=== PATIENT | female | born 1950 | race Caucasian/White ===

== ENCOUNTER 2016-11-12 22:57 | Inpatient (IN) ==
[2016-11-13] MEDS ORDERED: NS 1,000 ML IV ONE (00:06)
[2016-11-13 00:27] LABS: MANUAL DIFF NEEDED? NO
[2016-11-13 00:36] LABS: BASO% 0.1 % (0.0-0.8); HEMATOCRIT 35.2 % (37.0-47.0); HEMOGLOBIN 11.9 g/dL (12.0-16.0); IMM GRAN# 0.08 X1000 (0.0-0.04); IMM GRAN% 0.6 % (0.0-0.5); LYMPH# 0.87 X1000 (1.2-3.4); LYMPH% 6.1 % (20.5-51.1); MCH 30.5 PG (27-31); MCHC 33.8 g/dL (33-37); MCV 90.3 FL (81-99); MONO# 1.22 X1000 (0.11-0.59); MONO% 8.6 % (1.7-9.3); MPV 9.6 FL (7.4-10.4); NEUT% 84.6 % (42.2-75.2); PLT 205 X1000 (130-400)
[2016-11-13] MEDS ORDERED: MONISTAT-DERM 2% CREAM TOP ONE (00:40)
[2016-11-13 01:04] LABS: ACETONE SERUM NEGATIVE (NEGATIVE)
--- NOTE | 2016-11-13 01:04 | PROVIDER DOCUMENTATION ---
This chart was entered by Angie Billingsley Scribe, acting as scribe for Jorge Lazar MD. HPI-General Adult - General Chief Complaint: Fall Stated Complaint: multiple falls Time Seen by Provider: 11/12/16 23:56 Source: patient Allergies/Adverse Reactions: Patient Allergies Allergy/AdvReac Type Severity Reaction Status Date / Time meperidine HCl * AdvReac DIZZINESS Verified 11/12/16 23:22 [From Demerol] Home Medications: Home Medication List Medication Instructions Recorded Confirmed Last Taken Type Budesonide/Formoterol Inhaler 2 puff INH DIRECTED 07/12/15 11/12/16 11/12/16 21:00 History [Symbicort 160/4.5 Microgm Inhaler] Duloxetine [Cymbalta] 30 mg PO QHS 07/12/15 11/12/16 11/12/16 21:00 History Furosemide [Lasix] 80 mg PO DAILY 07/12/15 11/12/16 11/12/16 09:00 History Glipizide [Glucotrol] 10 mg PO DAILY 07/12/15 11/12/16 11/12/16 09:00 History Levetiracetam [Keppra] 500 mg PO BID 07/12/15 11/12/16 11/12/16 21:00 History Losartan Potassium [Cozaar] 100 mg PO DAILY 07/12/15 11/12/16 11/12/16 08:00 History Metoprolol Succinate E.r. [Toprol 50 mg PO BID 07/12/15 11/12/16 11/12/16 21:00 History Xl] PRAVAstatin [Pravachol] 40 mg PO QHS 07/12/15 11/12/16 11/12/16 21:00 History Ropinirole HCl [Requip] 1 mg PO QHS 07/12/15 11/12/16 11/12/16 21:00 History Trazodone [Desyrel] 150 mg PO QHS PRN 07/12/15 11/12/16 11/12/16 21:00 History - History of Present Illness -Gen Adult Nature of Presenting Problems: Patient is a 66 year old female who presents in the ED with grandson with complaints of multiple falls and other symptoms. Patient states she has had three falls/syncopal episodes today, and states her first fall was at 9:00 a.m. She also states she has felt lightheaded prior to passing out, and states she "stays out for a couple of minutes before waking back up." She reports she was seen in the ED on for similar symptoms but was discharged, and reports she had several similar episodes yesterday as well. She also reports she has had diarrhea since yesterday, and reports she has intermittent constipation as well. She states she has also had elevated glucose and dyspnea. She denies chest pain, abdominal pain, and any other symptoms. Location of Pain/Injury: reports: none Pain Radiation: reports: no radiation Quality of Pain: reports: none Severity: reports: mild, moderate Onset/Duration: reports: abrupt Timing: reports: intermittent Context/Activities at Onset: reports: light activity, moderate activity Modifying Factors: improves with: nothing Associated Symptoms: reports: diarrhea, syncope, other (multiple falls) Similar Symptoms Previously?: Yes (ED for same symptoms) Recently seen or treated by another doctor?: Yes (ED ) Review of Systems - Adult - REVIEW OF SYSTEMS - ADULT Constitutional: reports: see HPI, other (multiple recent falls) Eyes: reports: no symptoms reported Ears, Nose, Mouth & Throat: reports: no symptoms reported Cardiovascular: reports: no symptoms reported. denies: chest pain Respiratory: reports: see HPI, shortness of breath Gastrointestinal: reports: see HPI, diarrhea. denies: abdominal pain, hematemesis, rectal bleeding Genitourinary: reports: no symptoms reported Musculoskeletal: reports: no symptoms reported Integumentary: reports: no symptoms reported Neurological: reports: see HPI, syncope Psychiatric: reports: no symptoms reported Endocrine: reports: no symptoms reported Hematologic/Lymphatic: reports: no symptoms reported Allergic/Immunologic: reports: no symptoms reported All Other Systems: Reviewed and Negative Past History - Adult - PAST MEDICAL HISTORY-ADULT Review of Records: reports: Old Records Reviewed, Nursing Assessment Review, Medications Reviewed Major Childhood Illnesses: reports: denies history Cardiovascular: reports: CAD, CHF, HTN, hyperlipidemia, NV, other (CABG) Respiratory: reports: asthma, sleep apnea Gastrointestinal: reports: GERD Obstetrical/Gynecological: reports: denies history Genitourinary: reports: kidney disease Musculoskeletal: reports: denies history Neurological: reports: CVA, Multiple Sclerosis, Seizures/Epilepsy, TIA Psychiatric: reports: depression Endocrine/Immune: reports: Diabetes Other Conditions: reports: other (sleep apnea) - PRIOR SURGERIES/PROCEDURES Surgical/Procedure History: reports: appendectomy, cholecystectomy, hysterectomy , - PRIOR HOSPITALIZATIONS Prior Hospitalizations: reports: none - IMMUNIZATION STATUS Childhood Immunizations: See Nurse Assessment Flu Vaccine: See Nurse Assessment - FAMILY HISTORY Family History: reviewed, not pertinent - SOCIAL HISTORY Smoking: denies Substance Use: none/never Alcohol Use Frequency: never Living Situation: alone Physical Exam-General - PHYSICAL EXAM-ADULT Initial Vital Signs Reviewed: Yes - CONSTITUTIONAL General Appearance: alert, no apparent distress - EYES Eyes: PERRL/EOMI, pink conjunctivae - HEAD, EARS, NOSE, MOUTH & THROAT HENMT: normocephalic/atraumatic, moist mucous membranes - NECK Neck: non-tender, full range of motion, supple, normal inspection - RESPIRATORY Respiratory: chest non-tender, lungs clear, normal breath sounds, no pleuratic chest pain, no respiratory distress, no accessory muscle use - CARDIOVASCULAR Cardiovascular: regular rate, rhythm, no edema, no gallop, no JVD, no murmur - GASTROINTESTINAL (ABDOMEN) Abdominal Exam: normal bowel sounds, non tender, soft, no organomegaly, no pulsatile mass, other (obese) - LYMPHATIC Lymphatic: no adenopathy - MUSCULOSKELETAL Back Exam: normal inspection, no CVA tenderness, no vertebral tenderness Extremity: normal range of motion, non-tender, normal inspection, no pedal edema , no calf tenderness, normal capillary refill, pelvis stable - SKIN Integumentary: normal color, warm/dry - NEUROLOGIC Neurologic: grossly normal, no motor/sensory deficits - PSYCHIATRIC Psych/Mental Status: normal mood/affect, oriented x 3 Progress - PLAN OF CARE/RESULTS Progress/Plan/Lab Results: Vital Signs - 8 hr 11/12/16 23:26 Temperature 98.4 F Pulse Rate 96 H Respiratory Rate 20 Blood Pressure 166/77 O2 Sat by Pulse Oximetry 95 Laboratory Results - last 24 hr 11/12/16 23:54 POC Glucose 500 H D Orders Category Date Time Status CHEST-1 VIEW [RAD] Stat Exams 11/13/16 00:05 Taken AMYLASE [CHEM] Stat Lab 11/13/16 00:13 Received CBC WITH ELECTRONIC DIFF [HEME] Stat Lab 11/13/16 00:13 Results COMPREHENSIVE METABOLIC PANEL [CHEM] Stat Lab 11/13/16 00:13 Received Ketone [ACETONE SERUM] [CHEM] Stat Lab 11/13/16 00:13 Received LIPASE [CHEM] Stat Lab 11/13/16 00:13 Received MAGNESIUM [CHEM] Stat Lab 11/13/16 00:13 Received PHOSPHORUS [CHEM] Stat Lab 11/13/16 00:13 Received URINALYSIS W/POSS RFLX CULT-1 [URINALYSIS] Stat Lab 11/12/16 23:57 Uncollected 0.9% Sodium Chloride Inj [Ns] 1,000 ml Med 11/13/16 00:06 Active IV 999 mls/hr EKG [EKG] Stat Ther 11/12/16 23:57 Ordered Result Diagrams: 11/13/16 00:13 - REASSESSMENT Reassessment #1 Time Reassessed: 01:02 (Patient is stable. Patient will be admitted. ) Status: unchanged - CONSULTS/PCP/HOSPITALIST Notification #1 *Consult/PCP/Hospitalist*: Dr. Rae Time Discussed: 00:35 Reason/Comments: Due to multiple falls/dehydration/increased WBC Consult Disposition: Admit Departure - Departure Date of Disposition Decision: 11/13/16 Time of Disposition Decision: 00:35 DIAGNOSIS: Multiple falls, Dehydration, Diarrhea, Confusion Disposition: ADMITTED INPATIENT 09 Certified Medical Emergency: Emergent Condition: Stable - Critical Care Note This patient required my direct & personal management of CC.: No Attestation - Physician/ [place] Attestation Patient care was provided by Advanced Practice Provider:: No The physician spent face to face time with patient:: Yes Advanced Practice Provider documentation review:: Supervising physician onsite and consulted in the evaluation and care of this patient. The physician did have a face to face encounter with the patient. This chart was documented by the indicated scribe, (Angie Billingsley Scribe) and accurately reflects the services I performed and decisions made by me, Jorge Lazar MD, as attested by the provider's signature.
[2016-11-13] MEDS ORDERED: HUMULIN R SUBQ ONE (01:16)
[2016-11-13 01:20] LABS: AGAP 18; ALBUMIN 3.4 g/dL (3.5-5.0); ALKALINE PHOSPHATASE 92 U/L (32-104); AMYLASE 23 U/L (20-200); BUN 35 mg/dL (8-22); CALCIUM 9.6 mg/dL (8.8-10.2); CHLORIDE 96 mmol/L (98-107); COSMO 310; GOT 43 U/L (10-30); GPT 39 U/L (10-36); LIPASE 27 U/L (13-60); MAGNESIUM 1.6 mg/dL (1.5-2.7); POTASSIUM 4.6 mmol/L (3.5-5.1); SODIUM 136 mmol/L (136-145); TCO2 22 mmol/L (25-35); TOTAL BILIRUBIN 0.55 mg/dL (0.20-1.00)
[2016-11-13 01:38] LABS: URINE MICRO REVIEW NEEDED? NO; URINE SOURCE CATH
[2016-11-13 01:45] LABS: BILIRUBIN URINE NEGATIVE (NEGATIVE); BLOOD URINE MODERATE (NEGATIVE); COLOR YELLOW; GLUCOSE URINE >1000 mg/dL (NEGATIVE); LEUKOCYTES URINE NEGATIVE (NEGATIVE); NITRITE URINE NEGATIVE (NEGATIVE); PH URINE 5.5; PROTEIN URINE 100 mg/dL (NEGATIVE); SP GRAVITY URINE 1.023; TURBIDITY URINE CLEAR (CLEAR); UROBILINOGEN URINE NORMAL (NORMAL)
[2016-11-13 01:46] LABS: UR EPITHELIAL CELLS <10 /HPF (<10); URINE BACTERIA 4+ /HPF; URINE CULTURE NEEDED? YES; URINE RBC <10 /HPF (<10); URINE WBC <10 /HPF (<10)
[2016-11-13] MEDS ORDERED: ZOFRAN IV PRN (04:28)
[2016-11-13 04:30] LABS: INR 1.04; PROTIME 10.9 Seconds (9.2-11.7)
[2016-11-13 04:36] LABS: HEMOGLOBIN A1C 9.5 % (4.8-6.0)
[2016-11-13] MEDS ORDERED: PNEUMOVAX 23 IM ONE (05:10)
[2016-11-13 05:23] LABS: CK INDEX 0.8 (0.0-2.5); CK-MB 10.61 ng/mL (0.0-5.0)
[2016-11-13] MEDS: HUMALOG SUBQ SCH ×4 (06:43→21:25)
[2016-11-13] MEDS: NS 1,000 ML IV SCH ×2 (06:43→17:04)
[2016-11-13 07:34] LABS: CALCIUM 8.6 mg/dL (8.8-10.2); POTASSIUM 3.9 mmol/L (3.5-5.1)
[2016-11-13 07:42] LABS: CK INDEX 0.8 (0.0-2.5); CK-MB 10.27 ng/mL (0.0-5.0)
[2016-11-13] MEDS: SYMBICORT 160/4.5 MICROGM INHALER INH SCH ×2 (08:18→19:22)
[2016-11-13] MEDS: KEPPRA PO SCH ×2 (08:35→21:24)
[2016-11-13] MEDS: TOPROL XL PO SCH ×2 (08:35→21:25)
[2016-11-13] MEDS: TYLENOL PO PRN (08:37)
--- NOTE | 2016-11-13 08:39 | HISTORY AND PHYSICAL ---
PRIMARY CARE PROVIDER: Dr. Jamal Mcwilliams. NEUROLOGIST: Dr. Wooten. CHIEF COMPLAINT: Increased weakness and multiple falls. HISTORY OF PRESENT ILLNESS: Mr. Small is a 66-year-old female who presented to the ER this evening with complaints of increased weakness, difficulty with ambulation, as well as multiple falls. She was recently seen in the ER for some similar symptoms on November 06 and was ultimately diagnosed with fatigue and dehydration and was discharged. She states that since then her symptoms have actually worsened. Yesterday she reported multiple falls , stating she did hit her head but denied any loss of consciousness. She also reported a few episodes of syncope as well. The patient's grandson at bedside stating that his mother does go and check on his grandmother often and reported yesterday that she appeared to be more confused. Also, she had some slurred speech and was not acting like her normal self. Today the patient states that she awoke and was unable to ambulate due to weakness and fatigue, as well as some dizziness. She has denied any chest pain. She did report some shortness of breath but states this is actually improved at this time. She does have a history of COPD, on home oxygen with 4 L nasal cannula at night and p.r.n. as needed. She did report that she has had an increased need for use of this as well. She does have a history of sleep apnea, though does not wear a BiPAP or a CPAP at this time due to not having the right nose piece for the current machine that she has. She denied any abdominal pain. Did report a few episodes of vomiting over the past day or 2. She stated that yesterday she also had approximately 4 episodes of loose watery diarrhea. She denied any melena or hematochezia. She also denies any recent antibiotic use. The patient does have a history of multiple sclerosis and was previously on medications of Aubagio and Ampyra. Though the patient states that since being prescribed these medications, due to the cost of these medicines she was unable to afford them and they were not covered by her insurance and so she has not been taking them. Other than this, she denies any recent changes to her home medications, any new prescriptions, or any new [id number] medication use. The patient does have a history of a previous CVA with some residual left-sided weakness as well as left-sided sensory deficits. She was previously on Plavix, though does not take any Plavix or aspirin at this time. She stated that her physician took her off of this. She also has a history of seizures but denies any recent episodes. The patient currently does live alone, though reports that she does not have any home health for aides that come out to assist her. She states that at this time her weakness is getting to where she is unable to perform activities of daily living. She does have a daughter who is able to check on her occasionally, though is not able to provide this level of care that the patient may currently need. Upon evaluation in the ER, the patient was found to be weak. She does have generalized weakness. Her weakness is worse on the left as well as some sensory loss, though this is not of new onset and she reports is from a previous stroke. She did have an elevated glucose level of 635. The patient states she has been taking her medications as prescribed of Victoza and glipizide. Also upon examination, the patient did have some generalized soreness. She did report some generalized muscle aches and pains. She has a large area of ecchymosis and what appeared to be some petechiae to her left hip, left buttock area. Given this as well as well as her falls and reporting that she hit her head, we did go ahead and do a CT of the head and C-spine noncontrast which showed no acute abnormalities or injuries. Her pelvis and left hip x-ray showed no acute abnormality as well but we are awaiting the official radiology over-read. Her chest x-ray showed no acute abnormalities. At this time the patient will be admitted for further treatment and evaluation. PAST MEDICAL HISTORY: 1. Multiple sclerosis. 2. Seizure disorder. 3. Anxiety disorder. 4. Depression. 5. Hypertension. 6. Hyperlipidemia. 7. Obstructive sleep apnea. The patient is not using any CPAP at present. 8. History of cerebrovascular accident. 9. History of coronary artery disease status post CABG in 2007. 10. Congestive heart failure with last echocardiogram in July of 2014 that showed an EF of 70%. 11. Chronic obstructive pulmonary disease. PAST SURGICAL HISTORY: 1. CABG in 2007. 2. . 3. Total hysterectomy. 4. Appendectomy. 5. Cholecystectomy. SOCIAL HISTORY: The patient currently lives at home alone and previously was able to use a walker, though at this time states that she is unable to ambulate at all due to increased weakness. She does have a daughter who occasionally will check on her, though it does appear that the patient is now having difficulty performing her activities of daily living. She denies any current alcohol, tobacco, or illicit drug use, though did report she was a former smoker though has been quit for quite some time now. FAMILY HISTORY: Her mother at the age of 97. She did have a history of heart disease, diabetes mellitus, and hypertension. Her father in 1968 secondary to a massive heart attack. She does have 1 sister who due to complications from some neurological complications. She also has a brother who has been recently diagnosed with metastatic melanoma. ALLERGIES: Patient reports allergies to Demerol. HOME MEDICATIONS: Symbicort 160/4.5 mcg inhaler 2 puffs inhaled as directed, Cymbalta 30 mg p.o. at bedtime, Lasix 80 mg p.o. daily, glipizide 10 mg p.o. daily, Keppra 500 mg p.o. b.i.d., Cozaar 100 mg p.o. daily, Toprol-XL 50 mg p.o. b.i.d., pravastatin 40 mg p.o. at bedtime, Requip 1 mg p.o. at bedtime, trazodone 100 mg p.o. at bedtime p.r.n. for sleep, Victoza 1.8 mg subcutaneous daily. DIAGNOSTIC DATA/LABORATORY RESULTS: Laboratory results: White blood cell count 14.23, hemoglobin 11.9, hematocrit 35.2, platelet count 205,000. PT was 10.9. INR is 1.04. PTT is 26.6. Sodium 136, potassium 4.6, chloride 96, bicarb 22, anion gap 18, BUN 35, creatinine 1.4 with a GFR of 38. Glucose is 635. Hemoglobin A1c 9.5. Calcium 9.6, phosphorus 4, magnesium 1.56. Total bilirubin 0.55, AST 43, ALT 39, alkaline phosphatase 92. CK is 1,361. CK index 0.8. CK 18.61. Troponin is less than 0.01. ProBNP 2,422. Amylase is 23, lipase 7. Plasma lactate was 2.4. Serum acetone was negative. Urinalysis was obtained via catheter and was positive for protein, greater than 1000 glucose, ketones, and moderate blood, and 4+ bacteria. It was negative nitrites, leukocytes, white blood cells, and red blood cells. EKG showed normal sinus rhythm, rate of 63 with a QTc of 474. CT head and C-spine noncontrast showed an old ischemic event within the right thalamus but no acute intracranial abnormalities. There were some incidental findings of posterior disk osteophyte complex producing advanced to moderate central canal narrowing and moderate to advanced foraminal narrowing and that was in C5 through C7. X-ray chest portable showed no acute abnormalities, though we are awaiting official radiology over- read. PHYSICAL EXAMINATION: VITAL SIGNS: Temperature 98.1 degrees, heart rate 67, respiration 19, blood pressure 154/57, oxygen saturation is 96% on room air. GENERAL: Ms. Small is a pleasant, 66-year-old female who is resting in the ER stretcher. She is in no acute distress. She was awake, alert, and able to answer all questions appropriately. HEENT: Head is atraumatic, normocephalic. Pupils are equal, round, reactive to light, were 3 mm bilaterally and brisk. Subconjunctivae were pink. Oral mucosa is moist. Oropharynx is clear. NECK: Supple. Trachea is midline. No carotid bruits noted upon auscultation bilaterally. No overt signs of JVD noted. This was difficult to assess due to body habitus. CARDIOVASCULAR: Patient has normal S1, S2. No murmurs, gallops, rubs appreciated. Regular rate and rhythm. PULMONARY: Patient has symmetrical chest expansion bilaterally. Lung sounds are clear to auscultation bilateral full ramos. ABDOMEN: Soft and nondistended, though patient does have a protuberant abdomen noted. She did report some generalized tenderness upon palpation, though did previously state that when she fell a few times she did fall forward landing on her stomach, though there is no ecchymosis noted. Bowel sounds are present in all 4 quadrants. GENITOURINARY: Patient has a Ovalles catheter in place. There was clear, light criss colored urine noted in the Ovalles drainage bag. EXTREMITIES: No cyanosis, clubbing, or edema noted. Pulse, motor, and sensory is intact in all extremities. Pedal pulses were 2+ bilaterally. INTEGUMENTARY: The patient's skin is pink, warm, dry, and intact. The patient does have some area of irritation and erythema noted to the abdominal fold, which appears to be lenka yeast infection. She also has ecchymosis and petechiae noted to her left hip and left buttock. NEUROLOGICAL: Patient is alert and oriented x4. Cranial nerves 2 through 12 do appear to be grossly intact. EOMs were intact. The patient does have generalized weakness noted as well as some worsening weakness on the left side as well as some sensory loss in her left foot and left lower leg, though this is not of new onset, it is residual from a previous stroke. ASSESSMENT AND PLAN: 1. Syncope. At this time the cause is of uncertain etiology. The patient does have cardiac history, though she has denied any chest pain. We will go ahead and perform a series of cardiac enzymes. We have placed an order for echocardiogram as well as repeat EKG later on today. This also could be neurological in nature. The patient does have a history of previous CVA as well as a history of seizures and multiple sclerosis. Her CT of the head was negative for any acute intracranial abnormality. Even though she does have a history of previous CVA, she is not on any current aspirin or Plavix therapy. She does have medications for hypertension and a statin though. We have placed orders for telemetry as well as neuro checks and we will continue to monitor closely. 2. Weakness. The patient has reported increased weakness as well as fatigue, difficulty with balance and ambulation, as well as some problems with some confusion and slurred speech yesterday. At present she has not been recently taking any medications for her multiple sclerosis due to problems with cost. This could possibly be symptoms related to this. We have placed a consult with neurology with Dr. Tran. We will consider possibly ordering an MRI as well. Once the patient has regained some of her strength we will do a physical therapy evaluation. I have also placed a consult with social staff worker for possible need for rehab placement and/or home health or [facility] home health. 3. Possible rhabdomyolysis. The patient does have increased CK levels as well as a moderate amount of blood in her urine. She does have some muscle soreness and pain, as well as a little bit of metabolic acidosis with serum bicarb of 22 with an anion gap of 18. The patient did receive a 1 L normal saline bolus in the ER. We will continue with normal saline at 100 mL an hour, though we will monitor this very closely given that the patient does have a reported history of congestive heart failure, though her last echocardiogram in July of 2014 did show an EF of 70%. We will repeat renal studies this morning and continue to monitor closely. 4. Chronic kidney disease. In looking back this appears to be stable at this time, though we will continue to monitor this closely especially given possible rhabdomyolysis. 5. Uncontrolled diabetes mellitus. Her glucose level on arrival was 635 with an A1c of 9.5. She normally takes glipizide and Victoza, though we have placed her on a sliding scale insulin at this time. We will continue to follow. 6. Hypertension. We will continue her metoprolol, though have held her Cozaar at this time given her chronic kidney disease and possible rhabdomyolysis. 7. Dementia. We will continue her Cymbalta. She has been placed on the medical floor with telemetry. We have ordered seizure precautions, aspiration precautions, and neuro checks. She will be on a diabetic and heart healthy diet. Further orders and recommendations pending hospital course, diagnostic studies, and physician evaluation. Dictated by TESSIE Molina for Klaus Garcia MD cc: Klaus Garcia MD I have seen and examined this patient. Labs and imagine studies have been reviewed. Ass: Generalized weakness likely from metabolic derangement. Severe uncontrolled DM with HONK Dehydration continue with the plan above. MTDD
--- NOTE | 2016-11-13 09:10 | Diag Imaging Result Doc PS360 ---
XRAY PELVIS W/HIP 2-3VW LT - 11/13/2016 INDICATION: fall, left hip pain TECHNIQUE: Three views COMPARISON: None FINDINGS: There is no fracture or dislocation. There is mild bilateral hip osteoarthritis and some degenerative changes of the pelvis and greater trochanters. There is also advanced bilateral calcified peripheral vascular disease of the femoral arteries. IMPRESSION: No acute disease. Electronically signed by Ezra Waller 11/13/2016 9:07 AM
--- NOTE | 2016-11-13 09:16 | Diag Imaging Result Doc PS360 ---
CT HEAD/C-SPINE W/O CONTRAST - 11/13/2016 INDICATION: Fall, syncope TECHNIQUE: A CT dose reduction protocol was used. COMPARISON: 09/24/2015, 09/23/2015 FINDINGS: Head CT: Stable old lacunar in the right basal ganglia. Stable mild periventricular white matter hypodensities compatible with chronic microvascular disease. No intracranial mass or hemorrhage. The skull is intact. The sinuses, mastoids, and middle ears are clear. Cervical spine: There is reversal of the normal cervical lordosis at the lower cervical spine. Vertebral body heights are preserved. No evidence of fracture or subluxation. There is advanced disc degeneration at C5-6 and C6-7. There is moderate central canal stenosis at these levels. There is also moderate bilateral neural foraminal stenosis at these levels. IMPRESSION: 1. No acute disease in the head. No change from prior. 2. Cervical spondylosis. Chronic malpositioning of the cervical spine. No acute injury. Electronically signed by Ezra Waller 11/13/2016 9:14 AM
--- NOTE | 2016-11-13 09:28 | Diag Imaging Result Doc PS360 ---
CHEST-1 VIEW - 11/13/2016 INDICATION: Fall TECHNIQUE: COMPARISON: 11/06/2016 FINDINGS: Stable CABG changes. Stable borderline cardiomegaly. Pulmonary vascularity is top normal. Lung volumes are improved. There is decrease in the linear atelectasis at the right lung base. No new or focal infiltrates. IMPRESSION: Improvement from prior. Electronically signed by Ezra Waller 11/13/2016 9:25 AM
[2016-11-13] MEDS: MONISTAT-DERM 2% CREAM TOP SCH ×2 (12:07→21:38)
--- NOTE | 2016-11-13 13:55 | PROGRESS NOTE ---
DATE: 11/13/2016 SUBJECTIVE: 66-year-old female presented to the emergency room complaints of increased weakness, difficulty with ambulation as well as multiple falls recently seen in the emergency room with symptoms back on November 06 was ultimately diagnosed with fatigue and dehydration discharged, states that since that time symptoms are worsened, she got to where she cannot walk, she has had multiple falls. Patient's grandson apparently at bedside reported that she seemed to be more confused and maybe some slurred speech on presentation, daughter was here this morning. She feels like she is really not doing much at all as far as walking or ambulating and patient apparently did report some shortness of breath which had improved, she has a history of COPD on home O2 at 4 L per nasal cannula but she felt like she had increased need for O2. She is been diagnosed with MS and she has not been able afford treatment and has not seen her neurologist at this time in [place]. PAST MEDICAL HISTORY: 1. Review multiple sclerosis. 2. Seizure disorder. 3. Anxiety disorder. 4. Depression. 5. Hypertension. 6. Hyperlipidemia. 7. Obstructive sleep apnea on CPAP at night I think. 8. History of cerebrovascular accident. 9. History coronary artery disease status post CABG in 2007. 10. Congestive heart failure. Last echocardiogram July 2014 showed ejection fraction of 70% so assume this is diastolic dysfunction. 11. COPD. PAST SURGICAL HISTORY: CABG in 2007, , total hysterectomy, appendectomy, cholecystectomy. So was admitted with a history of questionable syncope uncertain etiology but general weakness. Cardiac enzymes, troponin a little elevated and I think that is related to her chronic kidney disease. Does not report any history of chest pain. EXAM: General: Today daughter was at the bedside. She is awake and alert, oriented x3. Speech seems to be clear and fluent. Vital signs: Temperature 98.3 degrees, pulse 66, respirations 19, blood pressure 146/48. Lungs: Clear anterolateral. Cardiovascular: Regular rhythm, rate without murmur or S3. Abdomen: Soft. Skin: Warm and dry. Sugars 308, 224. LAB: Rest of her lab reviewed. White count was 14,230, hematocrit 35, platelet count 205,000. Sodium 138, potassium 3.9, chloride 99, BUN 32, creatinine 1.1, calcium was 8.6. Liver functions, mild elevation of AST 43, ALT 39, albumin is 3.4. Pro time 10.9, PTT was 26. Urinalysis 4+ bacteria, moderate amount of blood, leukocytes were negative. Culture is pending. Chest x-ray, improvement from prior stable CABG changes, stable borderline cardiomegaly, pulmonary vasculature is top normal. Lung volumes are improved, decrease in linear atelectasis in the right base compared to 11/06/2016. CT of the head and C-spine no acute disease, cervical spondylosis chronic malposition in cervical spine, no acute abnormality. Hip and pelvis x-ray no acute disease. ASSESSMENT AND PLAN: 1. Syncope at this time uncertain etiology. I do not think she is having any active cardiac ischemia even though troponin is a little elevated. I suspect that is secondary to renal insufficiency. She has a history of previous cerebrovascular accident so history of seizures and history of multiple sclerosis. Apparently multiple sclerosis mainly affected her legs and she is complaining mainly of leg weakness. CT of the head was negative. Apparently she is no longer followed by her neurologist in [place]. We will ask Neurology to see her here, I do not know if her multiple sclerosis is active at this point. 2. Weakness, general weakness but particularly in her legs and will get physical therapy to evaluate and we are going to need to try and work with physical therapy and get her little bit stronger. There was a question of whether we should order an MRI, will talk to neurology. 3. Rhabdomyolysis with increased CPK levels and moderate amount of blood in urine. We will give her normal saline and watch these levels. 4. History of what sounds like congestive heart failure with normal ejection fraction. Ejection fraction last measured it was 70%. 5. Chronic kidney disease. I think her GFR appears stable right now. 6. Uncontrolled diabetes mellitus. Will follow her sugars. Hemoglobin A1c was 9.5. 7. Continue metoprolol, Cozaar for hypertension. 8. History of dementia, apparently she was on Cymbalta I presume for some anxiety, continue that. Review of her lab I do not see anything else to note. Her orders looking at her list of medications she is on Keppra 500 mg b.i.d., Cymbalta 30 mg at bedtime, she does have restless legs for which she is taking Requip 1 mg daily, she is on trazodone 150 mg at bedtime p.r.n., on sliding scale for sugars this. cc: Kenton Gomez MD
[2016-11-13 16:13] LABS: CK INDEX 0.8 (0.0-2.5); CK-MB 7.19 ng/mL (0.0-5.0)
[2016-11-13] MEDS: REGLAN PO SCH ×2 (17:12→21:24)
[2016-11-13] MEDS: CYMBALTA PO SCH (21:25)
[2016-11-13] MEDS: REQUIP PO SCH (21:25)
[2016-11-13] MEDS: PRAVACHOL PO SCH (21:25)
[2016-11-13 22:56] LABS: CK INDEX 0.8 (0.0-2.5); CK-MB 5.36 ng/mL (0.0-5.0)
[2016-11-13] MEDS: DESYREL PO PRN (23:06)
[2016-11-14] MEDS: HUMALOG SUBQ SCH ×4 (06:07→21:28)
[2016-11-14] MEDS: REGLAN PO SCH ×4 (06:07→20:48)
--- NOTE | 2016-11-14 06:13 | EKG Report ---
Test Performed on : 11/13/2016 03:41:25 AM Test Reason : Syncope, Weakness Blood Pressure : / mmHG Vent. Rate : 063 BPM Atrial Rate : 063 BPM P-R Int : 124 ms QRS Dur : 082 ms QT Int : 464 ms P-R-T Axes : 045 034 081 degrees QTc Int : 474 ms Normal sinus rhythm. Septal infarct , age undetermined Abnormal ECG No previous ECGs available Unconfirmed Result
[2016-11-14 07:01] LABS: MANUAL DIFF NEEDED? NO
[2016-11-14 07:12] LABS: BASO% 0.3 % (0.0-0.8); EOS# 0.21 X1000 (0.0-0.7); EOS% 2.2 % (0.0-10.0); HEMATOCRIT 33.3 % (37.0-47.0); HEMOGLOBIN 10.8 g/dL (12.0-16.0); IMM GRAN# 0.04 X1000 (0.0-0.04); IMM GRAN% 0.4 % (0.0-0.5); LYMPH# 2.99 X1000 (1.2-3.4); LYMPH% 30.8 % (20.5-51.1); MCH 29.4 PG (27-31); MCHC 32.4 g/dL (33-37); MCV 90.7 FL (81-99); MONO% 7.2 % (1.7-9.3); MPV 9.4 FL (7.4-10.4); NEUT% 59.1 % (42.2-75.2); PLT 202 X1000 (130-400); RBC 3.67 XMIL (4.2-5.4)
[2016-11-14 07:25] LABS: ALBUMIN 2.9 g/dL (3.5-5.0); MAGNESIUM 1.5 mg/dL (1.5-2.7); POTASSIUM 3.8 mmol/L (3.5-5.1); TOTAL BILIRUBIN 0.35 mg/dL (0.20-1.00); TOTAL PROTEIN 5.9 g/dL (6.3-8.3)
[2016-11-14] MEDS: SYMBICORT 160/4.5 MICROGM INHALER INH SCH ×2 (07:45→19:42)
[2016-11-14] MEDS: KEPPRA PO SCH ×2 (08:51→20:47)
[2016-11-14] MEDS: TOPROL XL PO SCH ×2 (08:52→20:48)
[2016-11-14] MEDS: MONISTAT-DERM 2% CREAM TOP SCH ×2 (08:52→20:49)
--- NOTE | 2016-11-14 09:07 | ECHO REPORT ---
ORDER DATE: 11/13/2016 MEASUREMENTS: 1. Left ventricular end-diastolic diameter 4, end systolic diameter 2.4. 2. Septal thickness 1.1. 3. Left atrium 4.2. 4. Aortic root 2.6. SUMMARY: 1. Technically difficult study due to limited acoustic window quality. 2. Aortic valve is trileaflet and opens normally on 2-dimensional images. Mitral, tricuspid, and pulmonic valves are without structural abnormality with trace mitral regurgitation and mild tricuspid regurgitation. Estimated systolic PA pressure by Doppler is 30 to 35 mmHg. The aortic root is normal size. 3. Normal left ventricular chamber size with mild concentric left hypertrophy suggested. Estimated left ventricular ejection fraction appears to be at least 65%. No obvious wall motion abnormality can be appreciated. Left atrium is mildly enlarged. Right atrium and right ventricle are normal in size with normal right ventricular systolic function. 4. No pericardial effusion. 5. Appearance of inferior vena cava suggests normal central venous pressure. CONCLUSIONS: 1. Technically difficult study. 2. Mild tricuspid regurgitation with estimated systolic PA pressure of 30 to 35 mmHg. 3. Mild concentric left hypertrophy with estimated left ejection fraction greater than 65%. 4. Mild left atrial enlargement. cc: Jacques Oviedo MD
--- NOTE | 2016-11-14 13:56 | PROGRESS NOTE ---
DATE: 11/14/2016 SUBJECTIVE: Ms. Small states she is still weak. She cannot walk. Legs are very weak. She was examined by Dr. Tran. I have discussed with Dr. Tran. OBJECTIVE: Temperature 97.7 degrees, pulse 60, respirations 16, blood pressure 163/62. CVP less than 6 cm.Lungs: Clear in all lung ramos. Cardiovascular: Regular rhythm and rate without murmur or S3. Abdomen: Soft. Skin: Warm and dry. Urine Output: 1300 mL. Blood Sugar: 199, 290. LABORATORY DATA: Labs reviewed. White count 9700, which is down from 14,000; hematocrit 33, platelet count 202,000. Chemistries, sodium 138, potassium 3.8, chloride 104, bicarbonate 24, BUN 25, creatinine 1.1, blood sugar 180, 199, 184, and 290 consecutively. Her EKG, normal sinus rhythm, slow R-wave progression. Possible old septal infarct. ASSESSMENT AND PLAN: 1. Syncope, questionable etiology, and general weakness. I did not really appreciate anything much focal. I think I ought to talk Dr. Tran. We will check an MRI of the head and neck. There is a questionable history of multiple sclerosis, not sure of this diagnosis. 2. General weakness and deconditioning. Continue physical therapy and try to get her strength better. 3. Rhabdomyolysis, which is improving. CPK level is going down. Note the blood pressure looks good. She is on metoprolol. 4. There is a history of dementia on her chart. We will continue to work on her strength, and we will have physical therapy come and work on that and evaluate. cc: Kenton Gomez MD
--- NOTE | 2016-11-14 14:46 | Diag Imaging Result Doc PS360 ---
EXAM: MRI C SPINE W/WO CONTRAST HISTORY: C spondylosis eval myelopathy; also r/o MS exacerb TECHNIQUE: MRI of the cervical spine with and without gadolinium; T1, T2, STIR sagittal, T1 and T2 axial with postgadolinium axial and sagittal T1. COMMENT: There is no evidence of focal abnormal gadolinium enhancement. There is no evidence of bone marrow edema. There is disc bulge and osteophyte formation with impingement of the cord at the C4-5, C5-6, and C6-C7 levels. At the C2-3 level there is no spinal or foraminal stenosis. At the C3-4 level there is mild left foraminal stenosis. At the C4-5 level there is impingement on the cord by disc bulge without evidence of spinal or foraminal stenosis otherwise. At the C5-C6 level there is mild spinal stenosis and no evidence of foraminal stenosis. At the C6-7 level there is moderate spinal stenosis and bilateral foraminal stenosis. At the C7-T1 level there is no spinal or foraminal stenosis. IMPRESSION: Severe spondylosis at the C4-5, C5-6, and C6-C7 levels with varying levels of spinal and foraminal stenosis as described above. Electronically signed by Arnoldo Whatley 11/14/2016 2:44 PM
--- NOTE | 2016-11-14 14:48 | Diag Imaging Result Doc PS360 ---
EXAM: MRI BRAIN W W/O CONTRAST - 11/14/2016 HISTORY: r/o MS exacerbation TECHNIQUE: Without and with contrast COMPARISON: Without contrast MRI brain of 09/24/2015 FINDINGS: There are multiple white matter lesions which are generally similar in distribution to the previous exam. There is decreased prominence of some lesions at the left frontal lobe compared the previous exam. There is a 0.6 cm lesion at the left superior frontal lobe which is new or more prominent compared to the previous exam. There is a lesion at the right temporal parietal junction which is mildly less prominent compared to the previous exam. There is no enhancing lesion identified. There is no evidence of hemorrhage, mass effect, midline shift, or hydrocephalus. The diffusion weighted images show no areas of restricted diffusion (no evidence of acute infarct). IMPRESSION: Multiple white matter lesions which are generally similar in distribution to the previous exam. These are compatible with the clinical history of multiple sclerosis. There is mild decreased prominence of white matter lesions at the left frontal lobe and right temporal parietal junction. There is a 0.6 cm white matter lesion at the left superior frontal lobe which is new or more prominent compared to the previous exam. There is no enhancing lesion identified. Electronically signed by Davie Little 11/14/2016 2:46 PM
--- NOTE | 2016-11-14 15:23 | CONSULTATION ---
DATE OF CONSULTATION: 11/14/2016 REASON FOR CONSULTATION: Weakness and falls with history of multiple sclerosis. HISTORY OF PRESENT ILLNESS: This 66-year-old, right-handed female who carries a diagnosis of multiple sclerosis and seizures as well as remote stroke who was admitted recently with complaints of weakness and falls as well as some mild confusion. Apparently the patient reports about a 1-week history of 1 fall per day which is new for her. In general, she falls maybe once a month. She did not have any loss of consciousness. She has had some increase jitteriness which she describes as some mild shaking of her both arms with preserved consciousness. She denies that these feel like seizures. She also denies any focal weakness that is new. She reports having diarrhea and vomiting for a few days this past week as well. She also has had some burning with urination but has attributed this to a yeast infection that her daughter says is actually not a vaginal yeast infection but it is just under the abdomen and on her legs. She has not had any headaches and again no focal new neurologic weakness. With regard to her multiple sclerosis diagnosis, she reports being diagnosed around age 59 [address] Wooten with a cranial MRI. She has not had a lumbar puncture. She started taking some type of injectable therapy which she took for a while and subsequently switched to Aubagio. She was taking this until about 6 months ago when she was no longer able to afford this. She has never had any relapses and has not had any treatment with high-dose steroids to indicate this either. She reports that her symptoms of multiple sclerosis involve weakness in her arms and legs as well as depression. With regard to seizures, she reports they involve shaking of her arms and legs bilaterally with preserved consciousness. Her daughter says that she thinks the patient does lose awareness and her eyes are rolled back but she is not certain she is losing awareness. Patient takes Keppra for this and is well-controlled. Since hospitalization she had a urine culture resulting in gram-negative rao, blood sugar noted to be over 600 on admission, mild elevations in AST and ALT, mild elevations in BUN and creatinine, and CK of 665. PAST MEDICAL HISTORY: Carries a diagnosis of multiple sclerosis and seizures. Anxiety and depression, hypertension, hyperlipidemia, AMY, remote stroke with some residual mild left-sided weakness. Coronary disease status post CABG in 2007, she is not taking any antiplatelets at this time, congestive heart failure reported, COPD, hysterectomy, appendectomy, cholecystectomy, . SOCIAL HISTORY: She lives alone in [place]. Typically uses a walker to ambulate. Her daughter checks in on her and is here at the hospital. No alcohol, tobacco or illicits. Previous smoker. FAMILY HISTORY: Her daughter apparently has multiple sclerosis. Also heart disease, diabetes, and hypertension run in the family. ALLERGIES: Allergy to Demerol reported. HOME MEDICATIONS: Reviewed including Symbicort, Cymbalta, Lasix, glipizide, Keppra 500 b.i.d., Cozaar, Toprol-XL, pravastatin, Requip, trazodone, Victoza. Notably not on any antiplatelet. REVIEW OF SYSTEMS: Review of systems x 10 was conducted and is otherwise negative except as detailed in the HPI. PHYSICAL EXAMINATION: Vital Signs: Afebrile. Blood pressure 163/62, pulse 61 , respirations 16. General: This is an obese, female, supine in bed with daughter at bedside. No acute distress. Pleasant and cooperative. Neck: Supple. No meningismus. Trachea midline. HEENT: Normal. Cardiovascular: No significant edema. Pulses intact and regular. Lungs: No increased work of breathing. Normal chest rise and expansion. No audible wheezes. Abdomen: Obese and soft. Nondistended. Nontender. Extremities: Well-perfused. No significant edema. No clubbing or cyanosis. Intact pulses. Skin: Warm, dry, and intact. Apparent yeast. Neurologic: Mental status: Awake, alert, oriented fully. No dysarthria. Attention and concentration: Intact, appropriate and spontaneous. Recent and remote memory intact. Cranial nerves 2 through 12 were tested and intact. Motor examination: No drift. Perhaps some slight increased tone in the left upper extremity, normal elsewhere. Strength testing is 5/5 throughout with encouragement with the exception of her left upper extremity which does appear to have some slight weakness throughout. Sensory examination is intact to light touch throughout. No evidence of gross incoordination on examination. Reflexes slightly brisk in bilateral upper extremities. 2+ at the knees. I could not elicit ankle jerks. Toes are mute. No clonus. IMAGING STUDIES: Head CT was personally reviewed. No acute findings and per the report no change from prior. She has an old lacune in the right basal ganglia. Cervical spine CT showed cervical spondylosis. There is mention of advanced disc degeneration at C5-6 and C6-7 with advanced to moderate central canal stenosis and moderate bilateral neural foraminal stenosis. LABS: Reviewed in the chart. White count was elevated at 14, now 9.7. BUN 25. Creatinine 1.1. Hemoglobin A1c of 9.5. Her glucose was 635 on admission. AST and ALT mildly elevated. Gram- negative rods on urine culture. C. diff. antigen positive. ASSESSMENT AND PLAN: Generalized weakness and repeated falls with no loss of consciousness as well as accompanying recent vomiting, diarrhea and dysuria. Her examination is not showing anything focal that seems to be new. This is reassuring. Her symptoms do not appear to be related to an MS exacerbation, nor am I hearing anything that sounds consistent with seizure. However, given her history as well as her risk factors and the imaging findings on cervical CT we will order MRI of the head and C-spine for further evaluation. If these are unrevealing, I suspect her diffuse symptoms are related to underlying metabolic and infectious etiologies which should improve with treatment. The patient has a history of CABG as well as stroke and is not taking any antiplatelet therapy at home. I would recommend at least an aspirin therapy. They do not report any history of bleeding or other complications with these medications and she is not sure why she is not taking it any longer. Thank you for this consultation. Will follow. cc: MD JORY Khan
[2016-11-14] MEDS: REQUIP PO SCH (20:48)
[2016-11-14] MEDS: CYMBALTA PO SCH (20:48)
[2016-11-14] MEDS: DESYREL PO PRN (20:48)
[2016-11-14] MEDS: PRAVACHOL PO SCH (20:48)
[2016-11-15] MEDS: REGLAN PO SCH ×4 (06:04→20:28)
[2016-11-15] MEDS: HUMALOG SUBQ SCH ×4 (06:04→21:34)
[2016-11-15] MEDS: MONISTAT-DERM 2% CREAM TOP SCH ×2 (08:11→20:29)
[2016-11-15] MEDS: KEPPRA PO SCH ×2 (08:11→20:28)
[2016-11-15] MEDS: TOPROL XL PO SCH ×2 (08:11→20:28)
[2016-11-15] MEDS: SYMBICORT 160/4.5 MICROGM INHALER INH SCH ×2 (09:35→19:32)
--- NOTE | 2016-11-15 12:40 | PROGRESS NOTE ---
DATE: 11/15/2016 SUBJECTIVE: Ms. Small states she does not feel any better. They were not able to stand her up. Every time they try, she says she gets very dizzy, very weak. She is requesting something for pain. She says she would take it just at night asking for Norman 5 mg. OBJECTIVE: Vital signs: Temperature 98.9 degrees, pulse 62, respirations 19, blood pressure 160/57, CVP less than 6 cm. Lungs: Clear in all lung ramos. Cardiovascular: Regular rhythm and rate without murmur or S3. Abdomen: Soft. Skin: Warm and dry. : Urine output 300 mL. LABORATORY DATA: White count 9070, hematocrit 33, platelet count 222,000. Blood sugar 372, 332, and 166. Syncope of questionable etiology, very weak. I do not see anything as necessary focal. We did check an MRI of her cervical spine and several severe spondylosis C4-C5, C5-C6, C6-C7 levels varying levels of spinal or foraminal stenosis. She had a brain MRI done as well. Multiple white matter lesions which are generally similar in distribution to the previous exam. These are compatible with clinical history of multiple sclerosis, some mild decreased prominence in the matter lesions in the left frontal lobe, and the right temporoparietal junction. There is a 0.6 cm white matter lesion in the left superior frontal lobe, which is now more prominent compared to previous exam. ASSESSMENT AND PLAN: 1. Generalized weakness. Repeated falls. No loss of consciousness well described. She has had some diarrhea and some dysuria and some recent vomiting. Her exam did not show anything focal. MRI is consistent with some white matter lesions consistent with previous diagnosis of multiple sclerosis. C-spine does show multiple levels of spinal stenosis. Continue physical therapy. 2. Rhabdomyolysis. CPK and CKs are going down. Continue fluids. 3. There is a history of questionable dementia in the past. 4. She has complained of pain. We were trying to be very conservative with her medications, help her with her physical therapy. I will let her have a Norman 5 mg at night. cc: Kenton Gomez MD
--- NOTE | 2016-11-15 16:13 | PROGRESS NOTE ---
DATE: 11/15/2016 SUBJECTIVE: The patient says she feels about the same today. She says that she did try to work with physical therapy today but was unable to stand and says that it is because she feels very nervous about falling. MRI of the head and neck was performed yesterday. OBJECTIVE: Vital Signs: Reviewed in the chart and stable. Blood pressure a little elevated. General: Obese female, supine in bed and in no acute distress. Cooperative. HEENT: Normal. Abdomen: Obese soft, nontender, nondistended. Skin: Warm, dry, intact. She does have yeast to the skin folds. Neurologic: Mental status is awake, alert, oriented, not dysarthric. Language intact. Attention and concentration intact. Spontaneous, appropriately conversant. Recent and remote memory intact. Cranial nerves 2-12 tested and intact. Motor : No drift. Normal bulk and tone. She has 5/5 strength throughout with encouragement and with muscle groups isolated on detailed testing. This is with the exception of slight weakness of the left deltoid. No evidence of incoordination on exam. Reflexes slightly brisk in the upper extremities. Right more than left, 2+ at the knees could not elicit ankle jerks. Toes are mute. No clonus. No hoffmans. DIAGNOSTICS: MRI of the brain was personally reviewed. There are multiple white matter lesions none of which are enhancing to suggest active MS exacerbation or other. MRI of the cervical spine was personally reviewed. There is severe spondylosis at C4-5, C5-6, C6-7 with impingement of the cord in those levels as well. Also noted foraminal stenosis as detailed in the report. There is no enhancement within the spinal cord. LABORATORY DATA: Labs were reviewed. Blood sugar down from 500 to 213 today. ASSESSMENT AND PLAN: A sense of generalized weakness without true muscle power weakness demonstrated on exam. This is in the setting of recent vomiting, diarrhea and dysuria, and uncontrolled glucose levels. Imaging is not consistent with MS exacerbation. There is some cord impingement in the cervical spine as detailed above and it is unclear if this has progressed from what the patient has known that she has had or not, but it is significant enough that I would recommend an outpatient consultation with either neurosurgery or orthopedic surgery. It is reassuring that she does not have any true muscle power weakness and no prominent myelopathic features at this time. I have encouraged her to work more with PT. I anticipate that she will show improvement. cc: Grace Tran MD MTDD
[2016-11-15] MEDS: NORCO-5 PO SCH (20:28)
[2016-11-15] MEDS: CYMBALTA PO SCH (20:28)
[2016-11-15] MEDS: REQUIP PO SCH (20:28)
[2016-11-15] MEDS: PRAVACHOL PO SCH (20:28)
[2016-11-16] MEDS: REGLAN PO SCH ×4 (06:07→22:02)
[2016-11-16] MEDS: HUMALOG SUBQ SCH ×4 (06:45→22:07)
[2016-11-16] MEDS: SYMBICORT 160/4.5 MICROGM INHALER INH SCH ×2 (08:16→19:24)
[2016-11-16] MEDS: TOPROL XL PO SCH ×2 (08:48→22:01)
[2016-11-16] MEDS: KEPPRA PO SCH ×2 (08:48→22:02)
[2016-11-16] MEDS: MONISTAT-DERM 2% CREAM TOP SCH ×2 (08:48→22:08)
--- NOTE | 2016-11-16 13:55 | PROGRESS NOTE ---
DATE: 11/16/2016 SUBJECTIVE: Ms. Small is feeling better. She says her legs may be a little bit better. She is able to bear some weight on it. She is still pretty dizzy and lightheaded when they try. She is open to the idea of trying to look for physical therapy. She remains afebrile. OBJECTIVE: Vital Signs: Temperature 98.4 degrees, pulse 62, respirations 16, blood pressure 186/53. Lungs are clear in all lung ramos. Cardiovascular: Regular rhythm and rate without murmur or S3. Abdomen soft. Skin is warm and dry. Blood sugars sequentially have been 345, 173, 192. LABORATORY: Her lab from 11/14/2016 reviewed. Chemistries reviewed. ASSESSMENT AND PLAN: 1. generalized weakness without true muscle power weakness demonstrated on exam in the setting of recent vomiting, diarrhea, and dysuria. Uncontrolled glucose levels. Imaging not consistent with MS exacerbation. There is some cord impingement on the cervical spine as detailed radiographically unclear if this has progressed to the point where it may be causing some of the weakness in her legs and arms, not significant enough that would obtain surgical consultation but may want to seek outpatient surgical intervention. At this point, she is getting a little stronger with physical therapy. We need to continue this. I have tried to push for inpatient rehab, and I think she is willing to pursue this. 2. Rhabdomyolysis which is improved. Continue IV fluids. 3. History of questionable dementia in the past. 4. Pain management seems to be good and not complaining of pain at this time. Social Service, I think, is working but I will get them to look for a rehab bed. cc: Kenton Gomez MD
[2016-11-16] MEDS: CYMBALTA PO SCH (22:01)
[2016-11-16] MEDS: NORCO-5 PO SCH (22:01)
[2016-11-16] MEDS: PRAVACHOL PO SCH (22:02)
[2016-11-16] MEDS: REQUIP PO SCH (22:02)
[2016-11-17] MEDS: HUMALOG SUBQ SCH ×4 (06:24→21:47)
[2016-11-17] MEDS: REGLAN PO SCH ×4 (06:24→21:45)
[2016-11-17] MEDS: SYMBICORT 160/4.5 MICROGM INHALER INH SCH ×2 (08:03→19:19)
[2016-11-17] MEDS: TOPROL XL PO SCH ×2 (08:06→21:45)
[2016-11-17] MEDS: KEPPRA PO SCH ×2 (08:06→21:45)
[2016-11-17] MEDS: MONISTAT-DERM 2% CREAM TOP SCH ×2 (08:06→21:49)
--- NOTE | 2016-11-17 16:14 | PROGRESS NOTE ---
DATE: 11/17/2016 SUBJECTIVE: Ms. Small is better. She is a little stronger. She cannot walk very far without a lot of assistance but she is improving. She would like to try and go home and continue physical therapy. She needs to be able to at least walk 30-40 feet, high risk for fall right now. Continue physical therapy. OBJECTIVE: Vital signs: Temperature 98, pulse 60, respirations 19, blood pressure 148/48. HEENT: Pupils are equal and round. Lungs: Clear in all lung ramos. Cardiovascular: Regular rhythm and rate without murmur or S3. Intake and output: Urine output over 2 L. LAB: From the reviewed. Chemistries reviewed. Blood sugar sequential 224, 161, 204, 219. ASSESSMENT AND PLAN: 1. Generalized weakness without muscle power weakness. I do not think this is an MS exacerbation. She is making improvement with physical therapy. We will continue. 2. Rhabdomyolysis which is resolving. 3. Dementia. Reports a history in the past. Aware. 4. Pain management seems to be very good at this time. She is eating. I reviewed her orders. I do not see any change at this point. Also has a history of seizures which is why she is on Keppra 500 mg b.i.d. Continue present medication. cc: Kenton Gomez MD
[2016-11-17] MEDS: REQUIP PO SCH (21:45)
[2016-11-17] MEDS: PRAVACHOL PO SCH (21:45)
[2016-11-17] MEDS: NORCO-5 PO SCH (21:45)
[2016-11-17] MEDS: CYMBALTA PO SCH (21:45)
[2016-11-17] MEDS: DESYREL PO PRN (21:52)
[2016-11-18] MEDS: HUMALOG SUBQ SCH ×4 (06:26→23:18)
[2016-11-18] MEDS: REGLAN PO SCH ×4 (06:26→21:23)
[2016-11-18] MEDS: SYMBICORT 160/4.5 MICROGM INHALER INH SCH ×2 (07:42→19:15)
[2016-11-18] MEDS: MONISTAT-DERM 2% CREAM TOP SCH ×2 (09:40→21:30)
[2016-11-18] MEDS: TOPROL XL PO SCH ×2 (09:40→21:23)
[2016-11-18] MEDS: KEPPRA PO SCH ×2 (09:40→21:23)
[2016-11-18] MEDS: TYLENOL PO PRN (09:47)
--- NOTE | 2016-11-18 10:19 | PROGRESS NOTE ---
DATE: 11/18/2016 Ms. Small says she is feeling better. She is a little stronger, still very puny, cannot really bear weight or walk very far at all. She would like to try and go home.Vital signs: Temperature is 98.3 degrees, pulse 59, respirations 20, blood pressure 187/63. Lungs: Are clear in all lung ramos. Cardiovascular: Regular rhythm and rate without murmur or S3. Abdomen: Soft. Skin: Is warm and dry. ASSESSMENT AND PLAN: As you will recall this is a 66-year-old presented to the ER complaining of increased weakness, difficulty in ambulation as well as multiple falls. Seen in the ER in November. There was a question on whether some of this was myasthenia gravis or multiple sclerosis. She was evaluated here by Neurology. MRI studies of the back and head and neck fairly unrevealing. Cervical spine done on 11/14. There is some spondylosis C4-5, C5-6, C6-7 so continue to try and resume her physical therapy. Dr. Grace Tran saw her. ASSESSMENT AND PLAN: 1. General sense of weakness without true muscle power weakness demonstrated on exam. Continue physical therapy. Try and build strength. She would like to try and go home but we need to be able to walk several feet and be able to stand and get out of bed. Imaging is not consistent with multiple sclerosis exacerbation. 2. Rhabdomyolysis which is resolved. 3. Some underlying dementia suspected and by report. 4. She is eating, good p.o. intake so we will continue physical therapy. I am not so sure she will not have to go to rehab but we will see how we progress. I do not see any change in the orders. cc: Kenton Gomez MD
[2016-11-18] MEDS: PRAVACHOL PO SCH (21:22)
[2016-11-18] MEDS: NORCO-5 PO SCH (21:22)
[2016-11-18] MEDS: REQUIP PO SCH (21:23)
[2016-11-18] MEDS: CYMBALTA PO SCH (21:23)
[2016-11-19] MEDS: REGLAN PO SCH ×4 (06:24→21:34)
[2016-11-19] MEDS: HUMALOG SUBQ SCH ×4 (06:25→21:34)
[2016-11-19] MEDS: SYMBICORT 160/4.5 MICROGM INHALER INH SCH ×2 (08:10→19:15)
[2016-11-19] MEDS: KEPPRA PO SCH ×2 (09:25→21:32)
[2016-11-19] MEDS: TOPROL XL PO SCH ×2 (09:25→21:33)
[2016-11-19] MEDS: MONISTAT-DERM 2% CREAM TOP SCH ×2 (09:26→21:51)
[2016-11-19] MEDS ORDERED: CHLORASEPTIC SPRAY MT PRN (11:48)
[2016-11-19] MEDS ORDERED: MILK OF MAGNESIA PO PRN (11:50)
--- NOTE | 2016-11-19 12:48 | PROGRESS NOTE ---
DATE: 11/19/2016 SUBJECTIVE: Ms. Small is feeling better. She would like her Ovalles catheter out. She needs some help with bowel movement. She stated that her throat is a little bit hoarse today. OBJECTIVE: Vital Signs: Temp 97.9 degrees, pulse 54, respirations 16, blood pressure 156/40. HEENT: Pupils are equal and round. Lungs: Clear in all lung ramos. Cardiovascular exam: Regular rhythm and rate without murmur or S3. Abdomen: Soft. Skin: Warm and dry. LABS: Blood sugars 171, 163 and 306. Lab reviewed from . ASSESSMENT AND PLAN: 1. General sense of weakness and deconditioning. This is improving. Continue physical therapy. Her goal is to try and get home. She would like to get home health, but continue to get her up and walk. 2. Rhabdomyolysis, which resolved. 3. Underlying dementia by report. Some mild cognitive decline. 4. Oral intake is good. 5. Get her Ovalles catheter out. She would like something for her bowels. She is eating. I will give her some Chloraseptic for laryngeal irritation. cc: Kenton Gomez MD
[2016-11-19] MEDS: PRAVACHOL PO SCH (21:32)
[2016-11-19] MEDS: REQUIP PO SCH (21:33)
[2016-11-19] MEDS: CYMBALTA PO SCH (21:34)
[2016-11-19] MEDS: NORCO-5 PO SCH (21:34)
[2016-11-20] MEDS: REGLAN PO SCH ×4 (06:25→21:01)
[2016-11-20] MEDS: HUMALOG SUBQ SCH ×4 (06:28→21:11)
[2016-11-20] MEDS: TOPROL XL PO SCH ×2 (09:00→21:04)
[2016-11-20] MEDS: KEPPRA PO SCH ×2 (09:00→21:01)
[2016-11-20] MEDS: MONISTAT-DERM 2% CREAM TOP SCH ×2 (09:00→21:12)
[2016-11-20] MEDS: SYMBICORT 160/4.5 MICROGM INHALER INH SCH ×2 (11:57→19:30)
--- NOTE | 2016-11-20 15:49 | PROGRESS NOTE ---
DATE: 11/20/2016 SUBJECTIVE: She is improved, she feels better. Bowels have been moving. She feels like she is getting a little stronger making progress. OBJECTIVE: Vital signs: Temperature 98.0 degrees, pulse 60, respirations 18, blood pressure 155/54. HEENT: Pupils are equal, round. CVP less than 6 cm. Lungs: Clear in all lung ramos. Cardiovascular: Regular rhythm and rate without murmur or S3. Abdomen: Soft. Skin: Is warm and dry. Urine output 1200 mL. Blood sugars 137, 147, 263. ASSESSMENT AND PLAN: 1. General sense of weakness and deconditioning. This is improving and continue to get a little stronger. We may need to go to rehab but she still like to try and aim for home so continue physical therapy. She needs be able to walk 20-30 feet and be able to have a decent balance. Right now she is at high risk for fall. 2. Rhabdomyolysis resolved. 3. Underlying dementia suspected. 4. P.o. intake is improved. 5. Ovalles catheter is out. Bowels are moving. Review of her orders I do not see any change at this point. cc: Kenton Gomez MD
[2016-11-20] MEDS: PRAVACHOL PO SCH (21:01)
[2016-11-20] MEDS: CYMBALTA PO SCH (21:01)
[2016-11-20] MEDS: REQUIP PO SCH (21:01)
[2016-11-20] MEDS: NORCO-5 PO SCH (21:02)
[2016-11-20] MEDS: BENADRYL PO PRN (23:53)
[2016-11-21] MEDS: HUMALOG SUBQ SCH ×5 (06:00→21:49)
[2016-11-21] MEDS: REGLAN PO SCH ×4 (06:30→20:13)
[2016-11-21] MEDS: SYMBICORT 160/4.5 MICROGM INHALER INH SCH ×2 (08:16→19:30)
[2016-11-21] MEDS: KEPPRA PO SCH ×2 (09:22→20:13)
[2016-11-21] MEDS: TOPROL XL PO SCH ×2 (09:22→20:13)
[2016-11-21] MEDS: MONISTAT-DERM 2% CREAM TOP SCH ×2 (09:23→20:50)
--- NOTE | 2016-11-21 15:00 | PROGRESS NOTE ---
DATE: 11/21/2016 SUBJECTIVE: Ms. Small states she is eating better. She wants to try and go home. She is walking. She reports she can walk from the bed to the bathroom and she is feeling better. OBJECTIVE: Vital signs: Temperature 97.7 degrees, pulse 58, respirations 18, blood pressure 168/52. HEENT: Pupils are equal, round. Neck: CVP less than 6 cm. Lungs: Clear in all lung ramos. Cardiovascular: Regular rhythm and rate without murmur or S3. Abdomen: Soft. Skin: Warm and dry. Intake and output: Urine output was over a liter. LABORATORY: Blood sugars sequential 206, 150, 262. ASSESSMENT AND PLAN: 1. General weakness and deconditioning, improving. Continuing to get stronger. She wants to go home and try to get home health to help her. She is walking a little better. We will try and get her home tomorrow. She says she is okay with that and her family is okay with that. 2. Rhabdomyolysis, resolved. 3. Dementia, suspected. Underlying cognitive decline from report. 4. Her p.o. intake is improving. 5. Her bowels are moving well. 6. Ovalles catheter out. We will try and get her home in the morning. Continue physical therapy. Reviewed her orders. I do not see any change at this point this. cc: Kenton Gomez MD
[2016-11-21] MEDS: CYMBALTA PO SCH (20:12)
[2016-11-21] MEDS: REQUIP PO SCH (20:13)
[2016-11-21] MEDS: PRAVACHOL PO SCH (20:13)
[2016-11-21] MEDS: NORCO-5 PO SCH (20:13)
[2016-11-22] MEDS: BENADRYL PO PRN (02:24)
[2016-11-22 04:59] VITALS: BP 183/56
[2016-11-22] MEDS: HUMALOG SUBQ SCH ×2 (06:56→11:32)
[2016-11-22] MEDS: REGLAN PO SCH ×2 (06:56→11:33)
[2016-11-22] MEDS: TOPROL XL PO SCH (08:11)
[2016-11-22] MEDS: KEPPRA PO SCH (08:11)
[2016-11-22] MEDS: MONISTAT-DERM 2% CREAM TOP SCH (08:11)
[2016-11-22] MEDS: SYMBICORT 160/4.5 MICROGM INHALER INH SCH (09:49)
[2016-11-22] MEDS ORDERED: GLUCOPHAGE PO SCH (17:00)
--- NOTE | 2016-11-23 09:51 | DISCHARGE SUMMARY ---
ADMISSION DATE: 11/13/2016 DISCHARGE DATE: 11/22/2016 CONSULTATIONS: Dr. Grace Tran with Neurology. PERTINENT PROCEDURES: 1. Head, cervical spine CT showed no acute disease in the head. No change from prior. Cervical spondylosis. Chronic malpositioning of cervical spine. No acute injury. 2. Echocardiogram showed an EF greater than 65%. 3. Brain MRI showed multiple white matter lesions which are generally similar in distribution to previous exams. They are compatible with clinical history of MS. Mild decreased prominence of the white matter lesions at the left frontal lobe and right temporal parietal junction. There is a 0.6 cm white matter lesion at the left superior frontal lobe which is new or prominent compared to previous exam. No enhancing lesion identified. 4. Cervical spine MRI shows severe spondylosis at C4 through 5, C5 through 6, C6 through 7 levels with varying levels of spinal and foraminal stenosis. DISCHARGE DIAGNOSES: 1. Generalized weakness with multiple falls, MS exacerbation and seizure was ruled out. Reports of no loss of consciousness. Her CT of the head and cervical spine as well as brain MRI and cervical MRI imaging is not consistent with MS exacerbation. It was also reassuring to Neurology that she had true muscle power weakness and no prominent myelopathic features. She has gotten stronger, she has improved will go home with home health and physical therapy. Follow up with her neurologist Dr. Wooten. 2. Mild rhabdomyolysis. Resolved. 3. Suspected underlying dementia. Aware. 4. Chronic kidney disease. Stable. 5. Uncontrolled diabetes mellitus with an A1c of 9.5. She is to continue on a diabetic diet, Glucotrol and Glucophage. 6. Hypertension. Stable. Continue medications. 7. Congestive heart failure history. Aware. Stable. 8. Multiple sclerosis history. Aware. Followed by Dr. Wooten. HOSPITAL COURSE: Ms. Small is a 66-year-old, female, who carries a past medical history of multiple sclerosis followed by Dr. Wooten in [place], seizure disorder, anxiety, depression, hypertension, hyperlipidemia and obstructive sleep apnea although she does not use a CPAP, CVA history, coronary artery disease status post CABG in 2007, congestive heart failure, and COPD who presented to the ED with complaints of increased weakness, difficulty with ambulation as well as multiple falls. Recently seen in the ED for similar symptoms on November 06 and was ultimately diagnosis with fatigue and dehydration and was discharged home. She since states that her symptoms have actually worsened. She reported multiple falls in that she hit her head but did not lose any consciousness. She does have a daughter who checks on her frequently who reports that she has been more confused, slurred speech and not acting like herself and on the day of her admission when she awoke she was unable to ambulate due to weakness and fatigue as well as some dizziness. She also reported a few episodes of vomiting two days prior along with 4 episodes of loose watery diarrhea. In the ED, she was found have an elevated glucose of 635. CT of the head and C-spine did not show any acute abnormalities or injuries. Her pelvis and left hip x-ray showed no acute abnormality as well. Her chest x-ray showed no acute abnormalities. Laboratory data showed a white count of 14, hemoglobin and hematocrit 11 and 35, a sodium of 136, potassium 4.6. BUN 35, creatinine 1.4. GFR 38. Hemoglobin A1c of 9.5. She was initially admitted for syncope of uncertain etiology but after several reports of talking with Neurology, she reported no loss of consciousness. She was given 1 L normal saline bolus in the ED, and continued on IV fluids for her mild rhabdo. She was placed on sliding scale insulin and pattern blood sugars. Neurology ordered a brain MRI and cervical spine MRI. They felt that her generalized weakness without true muscle power weakness demonstrated on exam in the setting of recent vomiting and diarrhea with uncontrolled glucose levels. Her imaging was not consistent with an MS exacerbation and it was reassuring that she did not have true muscle power weakness and no prominent myelopathic features and was encouraged to continue to work with physical therapy. We did try to pursue inpatient rehab however the patient is hesitant. Her appetite improved. She is walking with physical therapy. She reported that she can walk from the bed to the bathroom and is feeling better and wants to go home with home health. Dr. Garcia assessed the patient and feels she is appropriate for discharge home today. VITAL SIGNS: Temperature is 98 degrees, heart rate 52, respirations 22, blood pressure is 153/56, O2 is 96% on room air. DISCHARGE DIET: Diabetic. DISCHARGE MEDICATIONS: 1. As per Dr. Garcia. Symbicort 164.5 mcg inhaler 2 puffs inhaled as directed. 2. Cymbalta 30 mg p.o. at bedtime. 3. Glucotrol 10 mg p.o. daily. 4. Keppra 500 mg p.o. b.i.d. 5. Cozaar 100 mg p.o. daily. 6. Glucophage 850 mg p.o. b.i.d. 7. Toprol-XL 50 mg p.o. b.i.d. 8. Pravachol 40 mg p.o. at bedtime. 9. Requip 1 mg p.o. at bedtime. 10. Desyrel 150 mg p.o. at bedtime p.r.n. FOLLOW-UP: Ms. Small is being discharged home with home health and her DME. She does use home O2 at night for her COPD. She has been educated on diabetic diet, being compliant with her medications and following up with her neurologist Dr. Wooten. She can return to the ED for any worsening of symptoms. Dictated by TESSIE Tavarez for Klaus Garcia MD cc: MD Jamal Silva MD Time spent for discharge is 34 minutes MTDD
== END 2016-11-22 13:38 | disposition home health service (06) ==
LOC: ED 22:57 → 3N 11-13 03:33 → SUATTDRO 11-13 03:33
PROVIDERS: ATTEND Internal Medicine